=== PATIENT | male | born 1955 | race Caucasian/White ===

== ENCOUNTER 2019-01-27 12:37 | Emergency (ER) | payer OTHER ==
[2019-01-27] MEDS ORDERED: Sodium Chloride 0.9% 10 ML Syringe FLUSH PRN (12:57)
--- NOTE | 2019-01-27 13:03 | EDM.PDOC ---
ED HPI GENERAL MEDICAL PROBLEM - General Chief Complaint: Respiratory Problem Stated Complaint: SHORT OF BREATH Time Seen by Provider: 01/27/19 12:55 Source of Information: Reports: Patient, RN History Limitations: Reports: No Limitations - History of Present Illness INITIAL COMMENTS - FREE TEXT/NARRATIVE: 63 yr male presents with shortness of breath and irregular heart beat. Hx of VA with angioplasty, no stent and no CABG. He has been going to the Dr at [place], [place]. States he has taken his medication daily, but the medications are in the mail today. States this has been going on since last week. He takes several supplements OTC. He took some Sildenifil on the weekend and the SOB got worse. He hasn't had an echo on file. Chest x-ray completed and enlarged heart noted. - Related Data Allergies Allergy/AdvReac Type Severity Reaction Status Date / Time No Known Allergies Allergy Verified 08/29/18 11:07 Home Meds: Home Meds Aspirin [Adult Low Dose Aspirin EC] 81 mg PO DAILY 08/29/18 [History] Clobetasol [Clobetasol Propionate 0.05%] 30 gm TOP BID 08/29/18 [History] Enalapril [Vasotec] 5 mg PO BID 08/29/18 [History] Metoprolol Tartrate 25 mg PO BID 08/29/18 [History] Niacin [Niaspan] 500 mg PO DAILY 08/29/18 [History] Riboflavin 100 mg PO DAILY 08/29/18 [History] Rosuvastatin [Crestor] 20 mg PO BEDTIME 08/29/18 [History] Sildenafil Citrate [Sildenafil] 100 mg PO DAILY PRN 08/29/18 [History] Tamsulosin HCl 0.4 mg PO DAILY 08/29/18 [History] Ubidecarenone [Coenzyme Q-10] 30 mg PO DAILY 08/29/18 [History] Vitamin B Complex 1 each PO DAILY 08/29/18 [History] Vitamin E 400 unit PO DAILY 08/29/18 [History] diphenhydrAMINE [Benadryl] 50 mg PO BEDTIME PRN 08/29/18 [History] Past Medical History Cardiovascular History: Reports: Hypertension, VA Gastrointestinal History: Reports: Diverticulosis Genitourinary History: Reports: Prostate Disorder Dermatologic History: Reports: Psoriasis Social & Family History - Family History Family Medical History: Noncontributory - Caffeine Use Caffeine Use: Reports: None ED ROS GENERAL - Review of Systems Review Of Systems: See Below Constitutional: Reports: No Symptoms HEENT: Reports: No Symptoms Respiratory: Reports: Shortness of Breath Cardiovascular: Reports: Dyspnea on Exertion. Denies: Chest Pain ED EXAM, GENERAL - Physical Exam Exam: See Below Exam Limited By: No Limitations General Appearance: Alert Ears: Hearing Grossly Normal Throat/Mouth: Normal Voice, No Airway Compromise Head: Atraumatic, Normocephalic Neck: Normal Inspection, Supple, Full Range of Motion Respiratory/Chest: Lungs Clear, Normal Breath Sounds GI/Abdominal: Soft, Non-Tender Neurological: Alert, Oriented, Normal Cognition Psychiatric: Normal Affect, Normal Mood Skin Exam: Warm, Intact, Normal Color Course - Vital Signs Last Recorded V/S: Last Vital Signs Temp 97.9 F 01/27/19 12:54 Pulse 90 01/27/19 14:59 Resp 95 H 01/27/19 14:58 BP 144/84 H 01/27/19 16:00 Pulse Ox 95 01/27/19 14:59 - Orders/Labs/Meds Orders: Active Orders 24 hr Category Date Time Status EKG Documentation Completion [RC] ASDIRECTED Care 01/27/19 12:56 Active T3 UPTAKE Routine Lab 01/27/19 13:00 Received THYROID PEROXIDASE (TPO) AB Routine Lab 01/27/19 13:00 Received THYROXINE (T4) FREE, DIRECT, S Routine Lab 01/27/19 13:00 Received Sodium Chloride 0.9% [Saline Flush] Med 01/27/19 12:57 Active 10 ml FLUSH ASDIRECTED PRN Saline Lock Insert [OM.PC] Routine Oth 01/27/19 12:57 Ordered Medication Orders Sodium Chloride (Saline Flush) 10 ml FLUSH ASDIRECTED PRN PRN Reason: Keep Vein Open Labs: Laboratory Tests 01/27/19 01/27/19 Range/Units 13:01 13:01 WBC 8.4 D (4.0-11.0) K/uL RBC 4.91 (4.50-6.50) M/uL Hgb 15.2 (13.0-18.0) g/dL Hct 46.2 (40.0-54.0) % MCV 94 (76-96) fL MCH 31.0 (27.0-32.0) pg MCHC 32.9 (31.0-35.0) g/dL RDW 13.5 (11.0-16.0) % Plt Count 223 (150-400) K/uL MPV 9.7 (6.0-10.0) fL Neut % (Auto) 73.4 H (45.0-70.0) % Lymph % (Auto) 15.3 L (20.0-40.0) % Roosevelt % (Auto) 10.5 H (3.0-10.0) % Eos % (Auto) 0.6 L (1.0-5.0) % Baso % (Auto) 0.2 (0.0-0.5) % Neut # (Auto) 6.19 (2.00-7.50) K/uL Lymph # (Auto) 1.29 L (1.50-4.00) K/uL Roosevelt # (Auto) 0.89 H (0.20-0.80) K/uL Eos # (Auto) 0.05 (0.04-0.40) K/uL Baso # (Auto) 0.02 (0.02-0.10) K/uL Sodium 142 (136-145) mmol/L Potassium 4.3 (3.5-5.1) mmol/L Chloride 106 (98-107) mmol/L Carbon Dioxide 26.0 (21.0-32.0) mmol/L Anion Gap 14.3 (5.0-15.0) mmol/L BUN 19 D (8-26) mg/dL Creatinine 1.02 (0.70-1.30) mg/dL Est Cr Clr Drug Dosing 74.55 mL/min Estimated GFR (MDRD) > 60 (>60) MLS/MIN BUN/Creatinine Ratio 18.6 (6-25) Glucose 105 H (74-100) mg/dL Calcium 8.9 (8.5-10.1) mg/dL Total Bilirubin 0.7 (0.0-1.0) mg/dL AST 72 H (15-37) U/L ALT 163 H (12-78) U/L Alkaline Phosphatase 51 (46-116) U/L Troponin I 0.053 (0.000-0.060) ng/mL Total Protein 7.3 (6.4-8.2) g/dL Albumin 3.3 L (3.4-5.0) g/dL Globulin 4.0 (2.2-4.2) g/dL Albumin/Globulin Ratio 0.8 (0.8-2.0) TSH, Ultra Sensitive 5.658 H (0.358-3.740) uIU/mL Meds: Medications Generic Name Dose Route Start Last Admin Trade Name Freq PRN Reason Stop Dose Admin Sodium Chloride 10 ml 01/27/19 12:57 Saline Flush FLUSH ASDIRECTED PRN Keep Vein Open Discontinued Medications Generic Name Dose Route Start Last Admin Trade Name Freq PRN Reason Stop Dose Admin Metoprolol Tartrate Confirm 01/27/19 14:17 Lopressor Administered 01/27/19 14:18 Dose 5 mg .ROUTE .STK-MED ONE Metoprolol Tartrate 25 mg 01/27/19 14:35 Lopressor PO 01/27/19 14:36 ONETIME ONE Metoprolol Tartrate 5 mg 01/27/19 14:36 Lopressor IVPUSH 01/27/19 14:37 ONETIME ONE Metoprolol Tartrate Confirm 01/27/19 14:44 Lopressor Administered 01/27/19 14:45 Dose 25 mg .ROUTE .STK-MED ONE - Re-Assessments/Exams Free Text/Narrative Re-Assessment/Exam: 01/27/19 14:37 Reviewed EKG and pt status with Dr Rousseau, [facility] to consult with cardiology about pt. Consult with Cardiology Pierre [place] and recommend Metoprolol 5 mg IV now and transfer to next nearest facility as no telemetry beds are available. Consult Dr Leavitt, hospitalist at [facility] and [facility] to transfer pt with SOB atrial fibrillation and RVR. and aberrant beats. Will transfer [facility] ambulance to [facility]. Heart rate of 67 to 80. No peripheral edema. 01/27/19 14:46 Departure - Departure Time of Disposition: 16:00 Disposition: DC/Tfer to Acute Hospital 02 Reason for Transfer *Q: Other (New onset of atrial fibrillation with RVR) Condition: Good Clinical Impression: Atrial fibrillation with RVR, Shortness of breath at rest, History of VA ( myocardial infarction) Referrals: PCP,None [Primary Care Provider] - Forms: ED Department Discharge - My Orders Last 24 Hours: My Active Orders 01/27/19 12:56 EKG Documentation Completion [RC] ASDIRECTED 01/27/19 12:57 Sodium Chloride 0.9% [Saline Flush] 10 ml FLUSH ASDIRECTED PRN Saline Lock Insert [OM.PC] Routine 01/27/19 13:00 T3 UPTAKE Routine THYROID PEROXIDASE (TPO) AB Routine THYROXINE (T4) FREE, DIRECT, S Routine - Assessment/Plan Last 24 Hours: My Active Orders 01/27/19 12:56 EKG Documentation Completion [RC] ASDIRECTED 01/27/19 12:57 Sodium Chloride 0.9% [Saline Flush] 10 ml FLUSH ASDIRECTED PRN Saline Lock Insert [OM.PC] Routine 01/27/19 13:00 T3 UPTAKE Routine THYROID PEROXIDASE (TPO) AB Routine THYROXINE (T4) FREE, DIRECT, S Routine Plan: Transfer via road ambulance with RN to monitor. Diagnosis of atrial fibrillation with RVR of 106 and aberrant beats noted per EKG. This is new for him. The last EKG on file was when he had the VA and NSR was noted at that time. Pt PCP is at the [place], [place] or he does use the [facility] for hospital care and does use this ER for acute emergent needs. Shortness of breath has improved. Metoprolol 5 mg IV given X 1 and Metoprolol 25 mg PO given. Pt had a dose of Metoprolol 25 mg at home around 330 am today. Pt has been alert and calm. Troponin is negative, no chest pain with this. He does have elevated liver enzymes and this is new for him. He does take several OTC supplement that may be contributing to this. Transfer to [facility].
[2019-01-27] MEDS ORDERED: Sodium Chloride 0.9% 1,000 ML IV SCH (13:04)
[2019-01-27] MEDS ORDERED: Metoprolol Tartrate 5 MG/5 ML SDV ONE (14:17)
[2019-01-27] MEDS ORDERED: Metoprolol Tartrate 25 MG Tab PO ONE (14:35)
[2019-01-27] MEDS ORDERED: Metoprolol Tartrate 5 MG/5 ML SDV IVPUSH ONE (14:36)
[2019-01-27] MEDS ORDERED: Metoprolol Tartrate 25 MG Tab ONE (14:44)
--- NOTE | 2019-01-27 15:05 | CR ---
DATE OF SERVICE: 01/27/19 CLINICAL DATA: Shortness of breath. AP PORTABLE CHEST: No priors. The patient has taken a poor inspiration. The heart is enlarged. The pulmonary vasculature does appear prominent with some cephalization of flow suggesting pulmonary venous congestion. It may be accentuated by the poor inspiration. There is thickening of the minor fissure on the right, which may represent fluid in the minor fissure. There are linear densities in the right lung base consistent with linear atelectasis or fibrosis. The lungs otherwise clear. No pneumothorax. No pleural effusions. [id number] MTDD
[2019-01-30 09:09] LABS: T3 UPTAKE 33 % (24-39)
== END 2019-01-27 16:00 ==
LOC: LB.ED 12:37
DX: I48.91 Unspecified atrial fibrillation (principal); I25.2 Old myocardial infarction; I10 Essential (primary) hypertension; N42.9 Disorder of prostate, unspecified; Z79.82 Long term (current) use of aspirin; Z79.899 Other long term (current) drug therapy
CPT/HCPCS: 36415; 71045; 80053; 84439; 84443; 84479; 84484; 85025; 86376; 93005; 96361; 96374; 99285; 99285-25; A9270-GY; J3490; J7030

== ENCOUNTER → 2019-02-24 | Outpatient (CLI) | payer OTHER ==
--- NOTE | 2019-03-02 13:14 | MY ---
Date of Service: 02/24/19 Clinical Data: RIGHT BREAST PAIN RIGHT BREAST MAMMOGRAM: No priors. There is focal fibroglandular density posterior to the nipple and areola consistent with gynecomastia. No masses. No suspicious calcifications. No evidence of malignancy. IMPRESSION: Findings consistent with gynecomastia. No evidence of malignancy. BI-RAD B: Mammogram - There are scattered areas of fibroglandular density ACR 2 - Benign Mammogram. The exam was reviewed with R2 CAD. [id number] [facility]
== END ==
LOC: LB.MAM 13:14
PROVIDERS: ATTEND Nurse Practitioner Family
DX: N64.4 Mastodynia (principal)
CPT/HCPCS: 77065-RT